=== PATIENT | female | born 1935 | race Caucasian/White ===

== ENCOUNTER → 2023-04-09 | Outpatient (CLI) | payer MEDICARE, SELFPAY ==
--- NOTE | 2023-04-09 13:56 | ECHOCS_ITS ---
Reason For Study: MURMUR Procedure This was a 2D Doppler, Color Flow transthoracic echocardiogram. The study was technically difficult. Contrast injection was performed. Exam performed in department. Left Ventricle Normal LV size. Left ventricular systolic function is normal. The estimated ejection fraction is 65 %. Stage 1 diastolic dysfunction. No regional wall motion abnormalities noted. Right Ventricle Normal RV size. Normal systolic function. Atria Normal left atrium. Normal right atrium. Mitral Valve There is mild to moderate mitral annular calcification. Mild (1+) mitral valve insufficiency. Tricuspid Valve Normal tricuspid valve. Mild (1+) tricuspid valve insufficiency. Pulmonary artery systolic pressure is 35 mmHg. Aortic Valve Trisinus/trileaflet aortic valve. Mild focal aortic valve calcification. Peak aortic valve gradient 27 mmHg. Mean aortic valve gradient 13 mmHg. Mild aortic stenosis. Pulmonic Valve Normal pulmonic valve. Great Vessels Normal aortic root. The pulmonary artery is normal size. Normal inferior vena cava. Pericardium/Pleural No pericardial effusion. Medication 22 gauge I.V. with prn adaptor inserted into right arm. Performed a rapid injection of agitated mix of 9 cc saline and 1cc air to assess for atrial septal defect. Diluted definity 2ml given slow IV push to enhance endocardial definition. MMode/2D Measurements & Calculations LVIDd: 4.0 cm IVSd: 0.96 cm LVOT diam: 1.8 cm LVIDs: 2.6 cm LVPWd: 1.1 cm FS: 35.1 % LVOT area: 2.5 cm2 Ao root diam: 3.5 cm LAV(MOD-bp): 54.6 ml LVAd ap4: 30.0 cm2 LAV(MOD-bp) Indexed: 29.7 ml/m2 LVLd ap4: 7.6 cm LAV(MOD-sp2): 50.9 ml EDV(MOD-sp4): 96.6 ml LAV(MOD-sp4): 57.0 ml EDV(sp4-el): 101.0 ml LVAs ap4: 13.7 cm2 LVLs ap4: 5.6 cm ESV(MOD-sp4): 28.0 ml ESV(sp4-el): 28.6 ml EF(MOD-sp4): 71.1 % EF(sp4-el): 71.7 % SV(MOD-sp4): 68.7 ml SV(sp4-el): 72.4 ml LA A4 area: 19.9 cm2 LA dimension(2D): 3.8 cm RA A4 area: 13.6 cm2 Time Measurements MV dec time: 0.31 sec Doppler Measurements & Calculations MV E max keaton: 114.6 cm/sec Lat Peak E' Keaton: 5.8 cm/sec Med Peak E' Keaton: 6.0 cm/sec MV A max keaton: 173.9 cm/sec E/E' lat: 19.8 E/E' med: 19.3 MV E/A: 0.66 MV V2 max: 159.7 cm/sec MV dec slope: 376.5 cm/sec2 Ao V2 max: 259.1 cm/sec MV max P.2 mmHg Ao max P.9 mmHg MV V2 mean: 93.5 cm/sec Ao V2 mean: 154.7 cm/sec MV mean P.0 mmHg Ao mean P.7 mmHg MV V2 VTI: 48.5 cm Ao V2 VTI: 64.3 cm MVA(VTI): 1.8 cm2 AV (velocity ratio): 0.56 JULIA(I,D): 1.4 cm2 JULIA(V,D): 1.4 cm2 LV V1 max: 147.3 cm/sec SV(LVOT): 88.9 ml PA V2 max: 118.7 cm/sec LV V1 max P.7 mmHg PA V2 mean: 79.0 cm/sec LV V1 mean P.0 mmHg LV V1 mean: 103.5 cm/sec LV V1 VTI: 35.9 cm TR max keaton: 275.9 cm/sec TR max P.4 mmHg ECHO/Echo Complete W/ Contrast Interpretation Summary Normal LV size. Left ventricular systolic function is normal. The estimated ejection fraction is 65 %. Stage 1 diastolic dysfunction. There is mild to moderate mitral annular calcification. Mild focal aortic valve calcification. Mild aortic stenosis. Mean aortic valve gradient 13 mmHg. Ordering Physician: Nicolasa Ascencio Referring Physician: Nicolasa Ascencio Performed By: Arlene Vale RCS
== END | disposition home or self-care (01) ==
LOC: CVS 13:54
PROVIDERS: PCP Family Medicine; Referring Provider Family Medicine; Visit Provider Family Medicine
DX: R01.1 Cardiac murmur, unspecified (principal); R20.0 Anesthesia of skin
CPT/HCPCS: 93306; Q9957; A4216; C8929

== ENCOUNTER → 2023-04-22 | Outpatient (CLI) | payer OTHER, SELFPAY ==
--- NOTE | 2023-04-22 15:27 | NEURO ---
NCS and/or EMG Patient Report Ordering Doctor: Nicolasa Ascencio DATE OF SERVICE: 04/22/23 Clinical Summary: This is a 87 year old female presenting with complaints of tingling in both hands. This EMG/NCS was performed to evaluate for right/left carpal tunnel syndrome. Nerve Conduction Studies Summary: The median-D2 SNAP distal latency was prolonged bilaterally with reduced amplitude on the right. The right median-APB CMAP distal lateny was prolonged. Needle Examination Summary: There was a higher proportion of motor unit action potentials with reduced recruitment, increased amplitude, increased duration, and polyphasia in the right abductor pollicis brevis muscle. 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
== END | disposition home or self-care (01) ==
LOC: PSN 13:21
PROVIDERS: PCP Family Medicine; Referring Provider Family Medicine; Visit Provider Family Medicine
DX: R20.0 Anesthesia of skin (principal)
CPT/HCPCS: 95886; 95911

== ENCOUNTER 2023-10-22 10:57 | Day surgery (SDC) | payer MEDICARE, SELFPAY ==
[2023-10-22 11:19] VITALS: BP 172/81; PULSE 100; RESP 16; TEMP 36.1; O2SAT 99; BMI 27.8
[2023-10-22] MEDS: Lactated Ringers 1,000 ML 15 ML IV (11:29)
--- NOTE | 2023-10-22 12:34 | HP.PCM_ITS ---
HPI - General HPI Narrative SHAUN SAN, is a 88 F who presents for bilateral endoscopic carpal tunnel release. no changes to h and p. both wrists marked. rab and post op instructions given. patient understands, no further questions. MR#: [id number] Acct: [id number] Name: SHAUN SAN Rep #: [id number] : 1935 Provider: Dr. Mason Hi MD Age/Sex: 87/F Location: [facility] [email or web address] Status: Signed Intake Vital Signs 09/02/2412:26 Height 5 ft 5 in Weight: 170 lb 6 oz BMI 28.3 Intake Visit Reasons: BILATERAL HANDS Chief Complaint: discuss surgery Accompanied by: Self Is patient in pain?: No Allergies No Known Allergies Allergy (Unverified 09/16/23 13:48) Medications iron 18 mg tablet 18 mg PO DAILY 09/02/23 [History Confirmed 09/16/23] rwcmqibr-xcy-jxxry ac 400 mcg-calcium carb 500 mg-vit K1 20 mcg tablet (Women's 50 Plus Multivitamin) tab PO 09/02/23 [History Confirmed 09/16/23] omega 0-tei-dxg-fish oil 60 mg-90 mg-500 mg capsule (Fish Oil) 1 cap PO DAILY 09/02/23 [History Confirmed 09/16/23] PFSH Medical History Bilateral carpal tunnel syndrome Surgical History History of cataract surgery Social History household members: none Smoking Status: Never smoker alcohol intake: current alcohol intake frequency: holidays/special occasions only HPI BILATERAL HANDS Details: This documentation accurately reflects the service provided and the decisions made by me, Dr. Mason Hi MD 09/16/23 1310. Part of today?s visit was documented by [ ], acting as scribe. SHAUN SAN is a 87 year old F here today for 3 weeks FU bilat CTS and injections. Supplemental Info NCS and/or EMG Patient Report Ordering Doctor: Nicolasa Ascencio DATE OF SERVICE: 04/22/23 Clinical Summary: This is a 87 year old female presenting with complaints of tingling in both hands. This EMG/NCS was performed to evaluate for right/left carpal tunnel syndrome. Nerve Conduction Studies Summary: The median-D2 SNAP distal latency was prolonged bilaterally with reduced amplitude on the right. The right median-APB CMAP distal lateny was prolonged. Needle Examination Summary: There was a higher proportion of motor unit action potentials with reduced recruitment, increased amplitude, increased duration, and polyphasia in the right abductor pollicis brevis muscle. 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 patient had some questions about the recovery and pros and cons of the surgery. Dressing questions answered, no heavy lifting or gripping 6 weeks, healing and keeping dry for about 2 weeks. The injections did not really help. Again answered a number of questions recovery timing of the surgery the different options the patient does want to go ahead with bilateral endoscopic carpal tunnel release. She is on a number of different committees has a very active social life so we will likely want this by towards the end of the month. We will do our best to accommodate that. Pros and cons risks and benefits were discussed with the patient including but not limited to infection, pain, stiffness, bleeding, damage to surrounding structures, neurovascular injury, recurrence or retear, failure or wear of hardware or fixation, instability, fracture, deep vein thrombosis and pulmonary embolism, anesthetic risks, , patient dissatisfaction, need for further surgery and other risks. Patient understood and wished to proceed with surgery, and signed the informed consent documentation. [facility] Medical History (Updated 10/13/23 @ 08:18 by Madison Arnett) Alcohol use Arthritis Bilateral carpal tunnel syndrome Heart murmur History of echocardiogram Non-smoker Post-menopausal Wears glasses Wears hearing aid Home Medications iron 18 mg tablet 28 mg PO DAILY SUPPLEMENT 09/02/23 [History Last Taken Unknown] ofzxyjnc-rnu-pvkmm ac 400 mcg-calcium carb 500 mg-vit K1 20 mcg tablet (Women's 50 Plus Multivitamin) 1 tab PO DAILY 09/02/23 [History Last Taken Unknown] omega 5-ndc-jby-fish oil 60 mg-90 mg-500 mg capsule (Fish Oil) 1 cap PO DAILY 09/02/23 [History Last Taken Unknown] Allergy/AdvReac Type Severity Reaction Status Date / Time No Known Allergies Allergy Verified 10/22/23 11:18 Surgical History History of cataract surgery Social History household members: none Smoking Status: Never smoker alcohol intake: current alcohol intake frequency: holidays/special occasions only Vital Signs Vital Signs Vital Signs: 10/22/23 11:19 10/22/23 11:19 Temperature 97 F L Temperature Source Temporal Pulse Rate 100 Respiratory Rate 16 Respiratory Pattern Normal Blood Pressure 172/81 H Blood Pressure Mean 111 Blood Pressure Source Monitor Blood Pressure Position Sitting Blood Pressure Location Right Arm Pulse Ox 99 Oxygen Delivery Method Room Air Weight Weight: 167 lb Body Mass Index (BMI) 27.8
[2023-10-22] MEDS: Cefazolin 2 GM in 0.9% Normal Saline (100mL Bag) 100 ML IV (12:59)
[2023-10-22] MEDS: Bupivacaine 0.25% 30 ML Vial (13:42)
--- NOTE | 2023-10-22 13:49 | OP.PCM_ITS ---
Problems Associated Problem List Diagnoses (1) Bilateral carpal tunnel syndrome: Report of Operation Date of Procedure: 10/22/23 Pre-Operative Diagnosis: bilateral carpal tunnel syndrome Post-Operative Diagnosis: same Surgery/Procedure Performed:: bilateral endoscopic carpal tunnel release Surgeon: Mason Hi Type of Anesthesia: General and Local Anesthesiologist: Navid Chaudhary Estimated Blood Loss (mL): 10 Description of Procedure: Patient was brought to the operating room theater.? The patient was administered 2g iv ancef prior to the start of the procedure.? Placed supine on the operating room table.? Anesthesia induced.? SCDs on the legs.? Tourniquet applied to both upper operative extremity, appropriately padded. Arm table used. Operative extremity prepped and draped in the usual sterile fashion with chlorhexidine- based prep solution allowing over 3 minutes drying time prior to draping.? Preoperative timeout performed to confirm the site patient and the surgery. I did the same procedure on both sides. I used the [employer] center line endoscopic carpal tunnel kit / technique. 2 cc 0.25% bupivicaine at incision site. ? Tourniquet up at 250mmg. I made a transverse 2 cm incision in line with the? transverse wrist crease.? This was in line with the fourth digit.? I carried the dissection down through skin and subcutaneous tissue achieved meticulous hemostasis. Just ulnar to palmaris tendon.? I incised the antebrachial fascia.? I passed sequential dilators into the carpal tunnel along the radial border of the Guyon's canal aiming for the fourth digit with the hand in extension. I used a synovial elevator to identify the transverse fibers of the transverse carpal tunnel ligament.? Passed the scope into the carpal tunnel. Once I had identified the full proximal and distal extent of the ligament I fully released the ligament under direct visualization by deploying the blade and slowly withdrawing the scope made sequential passes until I no longer felt tension as well as the entire extent of the ligament was released under direct visualization.? Sounded the tunnel with adam tenotomy scissors, complete release, no bands. Pictures taken and saved before and after release. Tourniquet let down. Wound thoroughly irrigated.?Meticulous hemostasis achieved.? Incisions closed with 3-0 monocryl for the skin.?Skin was cleaned and dried. steri strips, adaptic and 4x4 gauze and jordan wrap. Patient woken up,? transferred off the operating room table and taken to postanesthetic care unit in stable condition. All sponge needle instrument counts were correct no complications.? Plan for the patient to be discharged home according to day surgery criteria when they are comfortable. Follow-up in the office in 2 days time. Gentle ROM hand and elbow no heavy lifting. cpt 76486 x2 Complications none Admit VTE Documentation VTE Present on Admission: No VTE Mechan Device Prophylaxis: SCD's VTE Pharm Prophylaxis ordered?: No Reason prophylaxis not ordered:: Treatment Not Indicated Procedures Musculoskeletal 20xxx-29xxx: Other Procedure See Report
--- NOTE | 2023-10-22 13:51 | DCINST_ITS ---
Discharge Instructions Diet Discharge Diet: No restrictions Activity Lifting Restrictions: no heavy lifting or gripping Keep extremity elevated above heart level: Operative Extremity Dressing / Incision Call your doctor if your incision/area has: Continuous Slow Oozing, Sudden Increased Bleeding, Increased Pain/ Swelling, Increased Redness, Foul Smelling Discharge and Swelling at the incision site Remove Dressing in: leave in place till F/U Follow Up Care Please Follow Up With: Mason Hi MD When: 2 days Test Results: Test results from this visit will be discussed in further detail at your follow- up appointment, if applicable. Discharge Plan Admission Attending Provider: Mason Hi Primary Care Provider: Nicolasa Ascencio Discharge Orders/Prescriptions Prescriptions: No Action Women's 50 Plus Multivitamin 400 mcg-500 mg calcium-20 mcg tablet 1 tab PO DAILY iron 18 mg tablet 28 mg PO DAILY omega 5-lvk-rne-fish oil [Fish Oil] 60-90-500 mg capsule 1 cap PO DAILY Referrals / Follow Up: Nicolasa Ascencio DO [Primary Care Provider] - Mason Hi MD [Med Staff - Active Staff] - Disposition Disposition (needs filled in before D/C Order can be placed): Home, Self Care
[2023-10-22 13:55] VITALS: BP 135/58; BP 172/81; PULSE 64; RESP 16; TEMP 36.2; O2SAT 99
[2023-10-22 14:00] VITALS: BP 134/99; BP 172/81; PULSE 63; RESP 16; O2SAT 97
[2023-10-22 14:05] VITALS: BP 146/90; BP 172/81; PULSE 62; RESP 16; O2SAT 98
[2023-10-22 14:10] VITALS: BP 132/99; BP 172/81; PULSE 63; RESP 16; TEMP 36.2; O2SAT 98
[2023-10-22 14:53] VITALS: BP 172/81
== END 2023-10-22 15:00 | disposition home or self-care (01) ==
LOC: SDC 10:58 → AC 10:58
PROVIDERS: PCP Family Medicine; Referring Provider Orthopaedic Surgery Sports Medicine; Visit Provider Orthopaedic Surgery Sports Medicine
PROC: (CPT 29848; principal; 2023-10-22 12:25)
DX: G56.03 Carpal tunnel syndrome, bilateral upper limbs (principal); I35.0 Nonrheumatic aortic (valve) stenosis
CPT/HCPCS: 29848; 01810; J7120; J2405

== ENCOUNTER → 2024-03-22 | Outpatient (CLI) | payer MEDICARE, SELFPAY ==
--- NOTE | 2024-03-22 09:40 | RAD_ITS ---
STUDY: X-RAY - LEFT SHOULDER REASON FOR EXAM: Female, 88 years old. PAIN TECHNIQUE: 4 view(s) of the shoulder. COMPARISON: None. FINDINGS: There is moderate degenerative arthrosis of the glenohumeral articulation. Normal acromioclavicular joint. Normal acromion. Normal humeral head and visualized proximal humerus. Bulky focus of calcification at the and infraspinatus tendon insertion site is compatible with calcific tendinitis. The soft tissue structures are unremarkable. There is no demonstrated fracture. Normal visualized pulmonary apex. RAD/Shoulder min 2 Views IMPRESSION: 1. Calcific tendinitis 2. Moderate left shoulder joint space narrowing. Electronically Signed: Chente Ulloa MD at 14:21 EDT ,
--- NOTE | 2024-03-22 09:40 | RAD_ITS ---
STUDY: X-RAY - RIGHT SHOULDER REASON FOR EXAM: Female, 88 years old. PAIN TECHNIQUE: 4 view(s) of the shoulder. COMPARISON: None. FINDINGS: There is severe degenerative arthrosis of the glenohumeral articulation. Normal acromioclavicular joint. Normal acromion. Moderate osteophyte formation is present at the medial and inferior aspect of the humeral head. The soft tissue structures are unremarkable. There is no demonstrated fracture. Normal visualized pulmonary apex. RAD/Shoulder min 2 Views IMPRESSION: 1. Severe DJD of the right shoulder Electronically Signed: Chente Ulloa MD at 9:17 EDT ,
== END | disposition home or self-care (01) ==
LOC: RAD 09:29
PROVIDERS: PCP Family Medicine; Referring Provider Family Medicine; Visit Provider Family Medicine
DX: M25.511 Pain in right shoulder (principal); M25.512 Pain in left shoulder
CPT/HCPCS: 73030